=== PATIENT | male | born 1970 | race African-American/Black ===

== ENCOUNTER 2018-01-12 03:05 | Emergency (ER) | payer OTHER ==
[2018-01-12] MEDS: IBUPROFEN 600 MG TABLET. PO (03:29)
== END 2018-01-12 03:45 | disposition home or self-care (01) ==
LOC: ER 03:05
DX: S90.32XA Contusion of left foot, initial encounter (principal); I25.10 Atherosclerotic heart disease of native coronary artery without angina pectoris; Z95.5 Presence of coronary angioplasty implant and graft; X58.XXXA Exposure to other specified factors, initial encounter; Y93.89 Activity, other specified; Y99.8 Other external cause status; Y92.89 Other specified places as the place of occurrence of the external cause
CPT/HCPCS: 73630; 99284